=== PATIENT | female | born 1990 | race Caucasian/White ===

== ENCOUNTER → 2020-11-10 10:13 | Outpatient (BNVA) | payer MEDICAID, SELFPAY | PROVIDERS: Visit Provider Advanced Practice Midwife ==

== ENCOUNTER 2021-11-20 08:06 | Outpatient (REF) | payer MEDICAID, SELFPAY ==
[2021-11-20 14:29] LABS: CT PCR DETECTED (Not Detect.); NG PCR NOT DETECTED (Not Detect.)
[2021-11-23 03:56] LABS: HPV mRNA E6/E7 rflx Not Detected (Not Detected)
== END 2021-11-20 08:07 | disposition home or self-care (01) ==
LOC: HO.LAB 08:06
PROVIDERS: Visit Provider Advanced Practice Midwife
DX: Z01.419 Encounter for gynecological examination (general) (routine) without abnormal findings (principal); Z11.51 Encounter for screening for human papillomavirus (HPV); Z20.2 Contact with and (suspected) exposure to infections with a predominantly sexual mode of transmission
CPT/HCPCS: 87491; 87591; 87624; 88142

== ENCOUNTER → 2022-04-19 11:08 | Outpatient (BNVA) | payer MEDICAID, SELFPAY | PROVIDERS: Visit Provider Advanced Practice Midwife | DX: Z32.02 Encounter for pregnancy test, result negative (principal) | CPT/HCPCS: 81025; 99212 ==

== ENCOUNTER 2023-02-25 08:52 | Emergency (ER) | payer MEDICAID, SELFPAY ==
[2023-02-25 08:55] VITALS: BP 140/77; PULSE 75; RESP 18; TEMP 36.3; O2SAT 98; BMI 22.7
--- NOTE | 2023-02-25 09:17 | ED_ITS ---
HPI - Back Pain/Injury General Chief Complaint: Back Pain/Injury Stated Complaint: Lower back pain Time Seen by Provider: 02/25/23 09:17 Source: patient Mode of arrival: ambulatory Limitations: no limitations History of Present Illness HPI Narrative: 33 yo female presents to the ER for evaluation of nontraumatic lower back pain that started last night when she was bending down and starting a bath for her 3 yo son. She states she felt a sudden sharp pain in her right lower back and has been in severe pain since. The pain is worse with any movement or bending. She could barely get her son dressed today or tie her shoes. She states the pain sometime shoots down both legs but it is only when she is bending. She took tylenol and used a heating pad with minimal relief. She denies any urinary symptoms. MD elicited complaint: back pain Onset (ago): day(s) (1) Timing: constant Severity: severe Pain scale (0-10): 10 Similar Symptoms Previously: No Quality: sharp and aching Location: right lower back Radiation: left upper leg and right upper leg Exacerbating factors: movement and lifting Relieving factors: immobilization Context: turning/twisting and bending Associated symptoms: denies other symptoms Treatments prior to arrival: acetaminophen Work related injury: No Related Data Previous Rx's Medication Instructions Recorded norethindrone acetate 1 mg-ethinyl 1 tab PO DAILY 21 days #21 tabs 02/12/23 estradiol 20 mcg tablet (Junel) cyclobenzaprine 10 mg tablet 10 mg PO TID PRN muscle spasm #14 02/25/23 tabs ibuprofen 600 mg tablet 600 mg PO Q8H PRN pain #20 tabs 02/25/23 lidocaine 5 % topical patch 1 patch topical DAILY #15 ea 02/25/23 Allergies Allergy/AdvReac Type Severity Reaction Status Date / Time penicillin G Allergy Intermediate hives Verified 02/25/23 08:54 Penicillins [PCN] Allergy Intermediate HIVES Verified 02/25/23 08:54 Review of Systems Review of Systems: Yes all other systems are reviewed and are negative FOR[facility] Past Medical History Surgical History History of Social History Social History Alcohol intake: current Alcohol intake frequency: holidays/special occasions only Smoked in Last 30 Days: No Use of substances other than those prescribed or required for medical reasons: No Sexual orientation: Straight/Heterosexual Gender identity: Female Physical Exam Vital Signs: Vital Signs: Last Vital Signs Temp 97.3 F 02/25/23 08:55 Pulse 81 02/25/23 09:34 Resp 16 02/25/23 09:34 BP 105/56 L 02/25/23 09:34 Pulse Ox 99 02/25/23 09:34 O2 Del Method Room Air 02/25/23 09:34 BMI result Body Mass Index 22.7 Appearance: Alert. Oriented X3. appears to be in pain, tearful HEENT: normocephalic, atraumatic. normal external inspection Neck: Normal inspection. Neck supple. CVS: Normal heart rate and rhythm. Pulses normal. Respiratory: No respiratory distress. Breath sounds normal. Abdomen: Soft and nontender. +BS x4 Back: normal inpsection, soft tissue tenderness of the right sided paraspinous muscles and middle lumbar area, no midline tenderness. limited spinal flexion due to pain. no CVA tenderness. Skin: Skin warm and dry. Normal skin color. Normal skin turgor. No rashes. Extremities: No lower extremity edema. No joint swelling. Neuro/psych: Oriented X 3. No motor deficit. No sensory deficit. CN II-XII intact. Normal speech and cognition. Slow but steady gait Course Reevaluation(s) Reevaluation #1: feeling better after medications. will treat for muscle strain/spasm Time: 10:22 Medications Administered Discontinued Medications Generic Name Dose Route Start Last Admin Trade Name Tanya PRN Reason Stop Dose Admin Acetaminophen 975 mg 02/25/23 09:25 02/25/23 09:42 Acetaminophen 325 Mg Tablet PO 02/25/23 09:26 975 mg ONCE ONE Administration Ketorolac Tromethamine 30 mg 02/25/23 09:25 02/25/23 09:41 Ketorolac Tromethamine 30 Mg/Ml Vial IM 02/25/23 09:26 30 mg ONCE ONE Administration Lidocaine 1 patch 02/25/23 09:25 02/25/23 09:41 Lidocaine 4 % Patch Adh..Patch TRANSDERMA 02/25/23 09:26 1 patch ONCE ONE Administration Protocol Oxycodone HCl 5 mg 02/25/23 09:25 02/25/23 09:42 Oxycodone Hcl Immed Release 5 Mg Tablet PO 02/25/23 09:26 5 mg ONCE ONE Administration Medical Decision Making Medical Decision Making MDM Narrative: 33 yo female presenting to the ER for evaluation of sudden onset LBP while bending down last night. No red flag symptoms of LBP. Exam and clinical presentation c/w muscle strain and spasm. No evidence of lumbar radiculopathy on examination. She is feeling better after pain meds, will d/c home with muscle relaxers, nsaids, lower back exercises. stable for d/c home. Differential Diagnosis Differential Diagnoses: The differential diagnosis associated with the presentation includes Inflammatory disorders, malignancy, trauma, osteoporosis, nerve root compression, radiculopathy, plexopathy, degenerative disc disease, disc herniation, spinal stenosis, sacroiliac joint dysfunction, facet joint injury, and less likely infection?like abscess or diskitis External Record Review External record reviewed: Prior outpatient labs Prescription Management I considered prescription management with: Pain Medication Critical Care Time Critical Care Time Critical Care Time: No Discharge Plan Discharge Clinical Impression: Strain of lumbar region Patient Disposition: Home, Self-Care Instructions: Low Back Strain (ED), Lower Back Exercises (ED) Additional Instructions: Your pain is most likely due to muscle strain and spasm. No bending, lifting or twisting. Use ice several times per day for 20 minutes at a time for the next 48 hours and then change to heat. Take medications as prescribed to help with pain and discomfort. Follow up with your Primary Care Doctor this week. If your pain worsens, if you develop new numbness, tingling, weakness, loss of function or incontinence call 911 or come back to the ER right away for evaluation. Prescriptions: New ibuprofen 600 mg tablet 600 mg PO Q8H PRN (Reason: pain) Qty: 20 0RF lidocaine 5 % adhesive patch,medicated 1 patch topical DAILY Qty: 15 0RF Rx Instructions: leave on most painful area for up to 12 hrs cyclobenzaprine 10 mg tablet 10 mg PO TID PRN (Reason: muscle spasm) Qty: 14 0RF No Action norethindrone ac-eth estradiol [11/02 (21)] 1-20 mg-mcg tablet 1 tab PO DAILY 21 Days Qty: 21 0RF
[2023-02-25 09:34] VITALS: BP 105/56; PULSE 81; RESP 16; O2SAT 99
[2023-02-25] MEDS: Lidocaine 4 % Patch ADH..PATCH 1 PATCH TRANSDERMA (09:41)
[2023-02-25] MEDS: Ketorolac Tromethamine 30 MG/ML VIAL IM (09:41)
[2023-02-25] MEDS: Acetaminophen 325 MG TABLET 975 MG PO (09:42)
[2023-02-25] MEDS: oxyCODONE HCl Immed Release 5 MG TABLET PO (09:42)
--- NOTE | 2023-02-25 09:52 | PC.NURSE ---
Pt sitting on stretcher, airway open and patent, no obvious signs of distress, no difficulty/labored breathing, equal chest rise and fall. Pt a&ox4. Skin color normal for ethnicity, warm, and dry. Lung sounds clr and equal bilaterally all hoang. Heart sounds normal. Bowel sounds present all hoang. Abdomen soft, non-tender. No edema noted. Pt complaining of 10/10 lower mid/right back pain. Pt reports that she was giving her son a bath last night and after that was when the back pain started.
== END 2023-02-25 10:52 | disposition home or self-care (01) ==
PROVIDERS: Emergency Provider Student in an Organized Health Care Education/Training Program
DX: M54.50 Low back pain, unspecified (principal); Z79.899 Other long term (current) drug therapy
CPT/HCPCS: 96372; 99284; J1885

== ENCOUNTER → 2023-03-15 09:55 | Outpatient (BNVA) | payer MEDICAID, SELFPAY | PROVIDERS: Visit Provider Advanced Practice Midwife ==